=== PATIENT | female | born 1995 | race African-American/Black ===

== ENCOUNTER 2019-02-04 17:38 | Emergency (ER) | payer OTHER ==
[2019-02-04 17:44] VITALS: BP 128/75; PULSE 84; TEMP 98.6; BMI 24.1
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
== END 2019-02-04 21:09 | disposition home or self-care (01) ==
LOC: JERFT 17:38
DX: S09.90XA Unspecified injury of head, initial encounter (principal); S16.1XXA Strain of muscle, fascia and tendon at neck level, initial encounter; T76.11XA Adult physical abuse, suspected, initial encounter; S29.019A Strain of muscle and tendon of unspecified wall of thorax, initial encounter; Y93.89 Activity, other specified; Y92.89 Other specified places as the place of occurrence of the external cause
CPT/HCPCS: 70450-TC; 72125-TC; 84703; 99281-25

== ENCOUNTER 2019-02-13 22:43 | Emergency (ER) | payer OTHER ==
[2019-02-13 22:58] VITALS: TEMP 98.4; BMI 24.1
[2019-02-13] MEDS ORDERED: METOCLOPRAMIDE HCL INJECTION 10 MG/2 ML VIAL IVPUSH ONE (23:32)
[2019-02-13] MEDS ORDERED: ACETAMINOPHEN 500 MG TABLET (FP) PO ONE (23:32)
[2019-02-13] MEDS ORDERED: SODIUM CHLORIDE 0.9% 500 ML INFUS.BAG IV ONE (23:32)
[2019-02-13] MEDS ORDERED: IBUPROFEN 400 MG TABLET (FP) PO ONE ×2 (23:32→23:42)
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
[2019-02-13] MEDS ORDERED: ACETAMINOPHEN 500 MG TABLET (FP) ONE (23:41)
[2019-02-13] MEDS ORDERED: METOCLOPRAMIDE HCL INJECTION 10 MG/2 ML VIAL ONE (23:58)
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
[2019-02-14 01:13] VITALS: BP 117/75; PULSE 90
== END 2019-02-14 02:01 | disposition home or self-care (01) ==
LOC: JER 22:43
PROC: 3E033GC Introduction of Other Therapeutic Substance into Peripheral Vein, Percutaneous Approach (ICD-10-PCS; principal; 2019-02-13)
DX: G44.309 Post-traumatic headache, unspecified, not intractable (principal)
CPT/HCPCS: 99282-25

== ENCOUNTER 2019-05-22 21:12 | Emergency (ER) | payer BC, OTHER ==
[2019-05-22 21:16] VITALS: BP 116/73; PULSE 75; TEMP 98.7; BMI 25.9
[2019-05-22] MEDS ORDERED: KETOROLAC TROMETHAMINE 60 MG/2 ML VIAL IM ONE (22:11)
[2019-05-22] MEDS ORDERED: KETOROLAC TROMETHAMINE 60 MG/2 ML VIAL ONE (22:12)
--- NOTE | 2019-05-22 22:16 | PDOC ---
History of Present Illness - General Chief Complaint: Back Pain Stated Complaint: BACK PAIN Time Seen by Provider: 05/22/19 22:09 - History of Present Illness Initial Comments: 05/22/19 22:11 23 y/o F w/o CM denies possibility of presents for evaluation of mid back pain after lifting a heavy pt at work today. She has a preexisting back injury for which she takes neurontin. No radicular symptoms, loss of bowel or bladder function or saddle parasthesia Past History - Past Medical History Allergies/Adverse Reactions: Allergies Allergy/AdvReac Type Severity Reaction Status Date / Time No Known Allergies Allergy Verified 02/13/19 23:18 Home Medications: Ambulatory Orders Cyclobenzaprine HCl [Flexeril 10 mg] 10 mg PO HS PRN #10 tablet 05/22/19 Gabapentin 0 mg PO HS 05/22/19 Ibuprofen [Motrin -] 600 mg PO TID #30 tablet 05/22/19 COPD: No - Immunization History Immunization Up to Date: Yes - Suicide/Smoking/Psychosocial Hx Smoking History: Never smoked Have you smoked in the past 12 months: No Hx Alcohol Use: No Drug/Substance Use Hx: No Substance Use Type: None Review of Systems - Review of Systems Musculoskeletal: Yes: Back Pain *Physical Exam - Vital Signs Last Vital Signs Temp Pulse Resp BP Pulse Ox 98.7 F 75 19 116/73 97 05/22/19 21:14 05/22/19 21:14 05/22/19 21:14 05/22/19 21:14 05/22/19 21:14 - Physical Exam Comments: 05/22/19 22:13 Thorasic and Lumbar spine skin color and temperature are normal. There is mild B para thorasic muscular spasm and tenderness there is 5/5 strength in B UE and LE w/o gross sensory or motor deficits NVID Medical Decision Making - Medical Decision Making 05/22/19 22:14 Torodol in the ED, Motrin and Flexeril at home f/u with neurosurgery *DC/Admit/Observation/Transfer Diagnosis at time of Disposition: Strain of fascia at thorax level - Discharge Dispostion Disposition: HOME Condition at time of disposition: Stable Decision to Admit order: No - Referrals Referrals: Myron Nunez MD, FAANS [Staff Physician] - - Patient Instructions Printed Discharge Instructions: DI for Thoracic Back Pain, Thoracic Back Pain Additional Instructions: Please start the Motrin tomorrow and take the medication as directed. The muscle relaxor is 1 tablet priopr to sleeping, it will make you tired. Return to the emergency room should symptoms worsen or go unresolved. and follow up with neurosurgery in 1-2 days without fail for further evaluation and treatment options. - Post Discharge Activity
== END 2019-05-22 22:38 | disposition home or self-care (01) ==
LOC: JERFT 21:12
PROC: 3E0233Z Introduction of Anti-inflammatory into Muscle, Percutaneous Approach (ICD-10-PCS; principal; 2019-05-22)
DX: S29.012A Strain of muscle and tendon of back wall of thorax, initial encounter (principal); X58.XXXA Exposure to other specified factors, initial encounter; Y93.89 Activity, other specified; Y92.239 Unspecified place in hospital as the place of occurrence of the external cause; Y99.0 Civilian activity done for income or pay
CPT/HCPCS: 99281-25

== ENCOUNTER 2020-06-28 13:12 | Emergency (ER) | payer BC, OTHER ==
[2020-06-28 13:39] VITALS: BP 111/65; PULSE 70; TEMP 98.2; BMI 28.3
[2020-06-28] MEDS ORDERED: KETOROLAC TROMETHAMINE 60 MG/2 ML VIAL IM ONE (14:37)
[2020-06-28] MEDS ORDERED: KETOROLAC TROMETHAMINE 60 MG/2 ML VIAL ONE (14:39)
--- NOTE | 2020-06-28 14:40 | PDOC ---
History of Present Illness - General Chief Complaint: Chronic pain Stated Complaint: LOWER BACK PAIN Time Seen by Provider: 06/28/20 13:50 - History of Present Illness Initial Comments: 06/28/20 14:38 24-year-old female no comorbidities history of microdiscectomy presents for evaluation of low back pain with posterior lateral right leg radicular symptoms. No systemic symptoms loss of bowel or bladder function or saddle paresthesias. Mild relief with Flexeril at home. Past History - Medical History Allergies/Adverse Reactions: Allergies Allergy/AdvReac Type Severity Reaction Status Date / Time No Known Allergies Allergy Verified 06/28/20 13:36 Home Medications: Ambulatory Orders Cyclobenzaprine HCl [Flexeril 10 mg] 10 mg PO HS PRN #10 tablet 05/22/19 Gabapentin 0 mg PO HS 05/22/19 Ibuprofen [Motrin -] 600 mg PO TID #30 tablet 05/22/19 Methylprednisolone [Medrol Dose Ernesto] 4 mg PO ASDIR #21 tablet 06/28/20 COPD: No - Reproductive History Is Patient Now?: No - Immunization History Immunization Up to Date: Yes - Psycho-Social/Smoking History Smoking History: Never smoked Have you smoked in the past 12 months: No Review of Systems - Review of Systems Constitutional: No: Fever Musculoskeletal: Yes: Back Pain *Physical Exam - Vital Signs Last Vital Signs Temp Pulse Resp BP Pulse Ox 98.2 F 70 18 111/65 100 06/28/20 13:36 06/28/20 13:36 06/28/20 13:36 06/28/20 13:36 06/28/20 13:36 - Physical Exam 06/28/20 14:39 Lumbar spine skin color temperature normal range of motion is slightly decreased. No midline tenderness. Moderate bilateral paralumbar musculature spasm and tenderness 5 out of 5 strength bilateral lower extremities without gross sensorimotor deficits thighs and calves are soft and nontender neurovasc ular intact Medical Decision Making - Medical Decision Making 06/28/20 14:39 Toradol in the emergency room start Medrol Dosepak tomorrow continue at home Flexeril follow-up with spine surgery I have reviewed the pathophysiology with the patient. They are in agreement with the treatment plan all questions were answered to their satisfaction. Understanding for follow-up without fail was also conveyed to the patient. Again they are in agreement. Discharge - Discharge Information Problems reviewed: Yes Clinical Impression/Diagnosis: Lumbar strain, Lumbar radiculopathy Condition: Stable Disposition: HOME - Admission No - Additional Discharge Information Prescriptions: Methylprednisolone [Medrol Dose Ernesto] 4 mg PO ASDIR #21 tablet - Follow up/Referral Referrals: Naga Delaney MD [Primary Care Provider] - Myron Nunez MD, FAANS [Staff Physician] - - Patient Discharge Instructions Additional Instructions: Please start the Medrol Dosepak tomorrow. Return to the emergency room for worsening symptoms. No anti-inflammatories while on the Medrol Dosepak. You may continue Flexeril. Without fail follow-up with neurosurgery in 1 to 2 days for further evaluation and treatment options and return to the emergency room should you have further issues. - Post Discharge Activity Work/Back to School Note: Back to Work
--- OUTSIDE RECORDS SUMMARY | 2020-06-28 15:48 | XMS ---
:1995 Author Organization [facility] Care Team Providers Name Role Phone NURSING, URBANHORIZONS Unavailable Unavailable Marilynn Isaac Unavailable Re-disclosure Warning The records that you are about to access may contain information from federally- assisted alcohol or drug abuse programs. If such information is present, then the following federally mandated warning applies: This information has been disclosed to you from records protected by federal confidentiality rules (42 CFR part 2). The federal rules prohibit you from making any further disclosure of this information unless further disclosure is expressly permitted by the written consent of the person to whom it pertains or as otherwise permitted by 42 CFR part 2. A general authorization for the release of medical or other information is NOT sufficient for this purpose. The Federal rules restrict any use of the information to criminally investigate or prosecute any alcohol or drug abuse patient.The records that you are about to access may contain highly sensitive health information, the redisclosure of which is protected by Article 27-F of the [place] State Public Health law. If you continue you may haveaccess to information: Regarding HIV / AIDS; Provided by facilities licensed or operated by the [facility] Office of Mental Health; or Provided by the [facility] Office for People With Developmental Disabilities. If such information is present, then the following [facility] mandated warning applies: This information has been disclosed to you from confidential records which are protected by state law. State law prohibits you from making any further disclosure of this information without the specific written consent of the person to whom it pertains, or as otherwise permitted by law. Any unauthorized further disclosure in violation of state law may result in a fine or senior care sentence or both. A general authorization for the release of medical or other information is NOT sufficient authorization for further disclosure. Encounters Encounter Providers Location Date Indications Data Source(s ) Outpatient Attender: 06/28/2020 [facility] 10:34:33 AM [facility] EDT - 06/28/2020 10:37:57 AM EDT Patient admitted. Outpatient 06/23/2019 01:27:02 PM EDT - [facility] 06/23/2019 01:31:36 PM EDT Patient admitted. Outpatient 04/15/2019 07:00:06 PM [facility] EDT - 04/15/2019 [facility] ealt 07:12:00 PM EDT Outpatient 04/13/2019 10:28:37 AM [facility] EDT - 04/13/2019 [facility] 11:06:57 AM EDT Outpatient 04/08/2019 04:38:38 PM [facility] EDT - 04/08/2019 [facility] 05:23:06 PM EDT Outpatient Attender: Marilynn [facility] 05:50:20 PM EDT Immunizations Vaccine Date Status Description Data Source(s) Influenza, 06/23/2019 completed Influenza, 06/23/2019 The injectable, 12:00:00 AM Injectable,(cciiv4), [place] MDCK, EDT Quadrivalent, [facility] preservative Preservative Free [facility] free, quadrivalent Tuberculin Test 04/13/2019 completed Tuberculin Test 04/13/2019, The 12:00:00 AM 04/06/2019 Institu te EDT [facility] Tdap 04/06/2019 completed Tdap 04/06/2019 The 12:00:00 AM Institut e EDT For Family Health Tuberculin Test 04/06/2019 completed Tuberculin Test 04/13/2019, The 12:00:00 AM 04/06/2019 Institu te EDT For [facility] IIV3. This is 10/12/2014 completed Influenza, Seasonal, 10/12/2014, The one of two codes 12:00:00 AM Injectable 11/27/2013, [place] replacing CVX EST 01/01/2013, For Family 15, which is 08/23/2011 Health being retired. Meningococcal 11/27/2013 completed MENVEO - Meningococcal 11/27/2013 The MCV4O 12:00:00 AM (Groups A, C, Y, and [place] EST W-[id number]) Oligosaccharide For Family Diphtheria [id number] He alth Conjugate Vaccine IIV3. This is 11/27/2013 completed Influenza, Seasonal, 10/12/2014, The one of two codes 12:00:00 AM Injectable 11/27/2013, [place] replacing CVX EST 01/01/2013, For Family 15, which is 08/23/2011 Health being retired. IIV3. This is 01/01/2013 completed Influenza, Seasonal, 10/12/2014, The one of two codes 12:00:00 AM Injectable 11/27/2013, [place] replacing CVX EDT 01/01/2013, For Family 15, which is 08/23/2011 Health being retired. IIV3. This is 08/23/2011 completed Influenza, Seasonal, 10/12/2014, The one of two codes 12:00:00 AM Injectable 11/27/2013, [place] replacing CVX EST 01/01/2013, For Family 15, which is 08/23/2011 Health being retired. varicella 10/22/2009 completed Varicella 10/22/2009, The 12:00:00 AM 11/17/1997 Institu te EST For [facility] This code is 08/26/2006 completed Fluvax 08/26/2006, The being retired. 12:00:00 AM 10/01/2002 In stitute It will still be EST For Family found in older [facility] immunization records. It included both preservative free and non-preservative free. Hep A, ped/adol, 08/26/2006 completed Hepatitis A Vaccine 08/26/2006 The 2 dose 12:00:00 AM Ped/adol 2 Dose [place] EST For [facility] This code is 10/01/2002 completed Fluvax 08/26/2006, The being retired. 12:00:00 AM 10/01/2002 In [facility] It will still be EST For Family found in older [facility] immunization records. It included both preservative free and non-preservative free. MMR 11/14/2000 completed MMR 11/14/2000, The 12:00:00 AM 11/17/1997 Institu te EST For [facility] IPV 11/14/2000 completed IPV 11/14/2000 The 12:00:00 AM Institut e EST [facility] DTaP 11/14/2000 completed DTaP- Diphtheria 11/14/2000 T he 12:00:00 AM tetanus toxoids and [place] EST acellular pertussis For [facility] Hib, unspecified 03/09/1998 completed Hib, Unspecified 03/09/1998, The formulation 12:00:00 AM Formulation 04/20/1997, In [facility] EDT 02/18/1997, For Fami ly 1996 Health DTP 03/09/1998 completed DTP-Diphtheria,tetanus 03/09/1998, The 12:00:00 AM toxoids and pertussis 04/20/1997, [place] EDT vaccine 02/18/1997, For Fami ly 1995 Health varicella 11/17/1997 completed Varicella 10/22/2009, The 12:00[facility] MMR 11/17/1997 completed MMR 11/14/2000, The 12:00:00 [facility] This CVX code 04/20/1997 completed Polio, Unspecified 04/20/1997, The allows reporting 12:00:00 AM Formulation 02/18/1997, [place] of a vaccination EDT 1995 Fo r Family when formulation Hea lth is unknown (for example, when recording a polio vaccination when noted on a vaccination card) Hib, unspecified 04/20/1997 completed Hib, Unspecified 03/09/1998, The formulation 12:00:00 AM Formulation 04/20/1997, In [facility] EDT 02/18/1997, For Fami ly 1996 Health This code 04/20/1997 completed Hepatitis B 04/20/1997, The applies to any 12:00:00 AM Vaccine,pediatric/adol 02/18/1997 , [place] standard EDT escent Dosage 1995 For F amily pediatric Health formulation of Hepatitis B vaccine. It should not be used for the 2-dose hepatitis B schedule for adolescents (11-15 year olds). It requires Merck's Recombivax HB adult formulation. Use code 43 for that vaccine. DTP 04/20/1997 completed DTP-Diphtheria,tetanus 03/09/1998, The 12:00:00 AM toxoids and pertussis 04/20/1997, [place] EDT vaccine 02/18/1997, For Fami ly 1995 Health This CVX code 02/18/1997 completed Polio, Unspecified 04/20/1997, The allows reporting 12:00:00 AM Formulation 02/18/1997, [place] of a vaccination EDT 1995 Fo r Family when formulation Hea lth is unknown (for example, when recording a polio vaccination when noted on a vaccination card) Hib, unspecified 02/18/1997 completed Hib, Unspecified 03/09/1998, The formulation 12:00:00 AM Formulation 04/20/1997, [place] EDT 02/18/1997, For Fami ly 1996 Health This code 02/18/1997 completed Hepatitis B 04/20/1997, The applies to any 12:00:00 AM Vaccine,pediatric/adol 02/18/1997 , [place] standard EDT escent Dosage 1996 For F amily pediatric Health formulation of Hepatitis B vaccine. It should not be used for the 2-dose hepatitis B schedule for adolescents (11-15 year olds). It requires Merck's Recombivax HB adult formulation. Use code 43 for that vaccine. DTP 02/18/1997 completed DTP-Diphtheria,tetanus 03/09/1998, The 12:00:00 AM toxoids and pertussis 04/20/1997, [place] EDT vaccine 02/18/1997, For Fami ly 1996 Health This CVX code 1996 completed Polio, Unspecified 04/20/1997, The allows reporting 12:00:00 AM Formulation 02/18/1997, [place] of a vaccination EST 1996 Fo r Family when formulation Hea lth is unknown (for example, when recording a polio vaccination when noted on a vaccination card) Hib, unspecified 1996 completed Hib, Unspecified 03/09/1998, The formulation 12:00:00 AM Formulation 04/20/1997, In stitute EST 02/18/1997, For Fami ly 1996 Health This code 1996 completed Hepatitis B 04/20/1997, The applies to any 12:00:00 AM Vaccine,pediatric/adol 02/18/1997 , [place] standard EST escent Dosage 1996 For F amily pediatric Health formulation of Hepatitis B vaccine. It should not be used for the 2-dose hepatitis B schedule for adolescents (11-15 year olds). It requires Merck's Recombivax HB adult formulation. Use code 43 for that vaccine. DTP 1996 completed DTP-Diphtheria,tetanus 03/09/1998, The 12:00:00 AM toxoids and pertussis 04/20/1997, [place] EST vaccine 02/18/1997, For Fami ly 1996 Health Insurance Providers Payer name Policy type Policy ID Covered Covered green party's Policy P tyra / Coverage green party ID relationship to [facility] Inf ormation type gonzales GHI CBP OUTPT [id number] [facility] [id number] [facility] [id number] [place] [id number] [facility] HUMAN [id number] Self [phone] RESOURCES INSURANCE HUMAN Employee [id number] RESOURCES Health Care INSURANCE [facility] [id number] [facility] [id number] Problems, Conditions, and Diagnoses Code Display Name Description Problem Type Effective Data Dates Source(s) Z23 Encounter for Encounter for Diagnosis 06/28/2020 [facility] itute immunization immunization 10:34:33 AM For Famil y EDT Health Z00.00 Encounter for Encounter for Diagnosis 06/23/2019 [facility] [employer] general adult general adult 01:27:02 PM For Fam valente medical examination medical examination EDT Health without abnormal without abnormal findings findings Z02.9 Encounter for Encounter for Diagnosis 04/15/2019 [facility] [employer] administrative administrative 07:00:06 PM For F amily examinations, examinations, EDT Health unspecified unspecified Forms Forms Diagnosis 04/15/2019 The [place] 07:00:06 PM For Family EDT Health PPD Reading PPD Reading Diagnosis 04/15/2019 The Institut e 07:00:06 PM For Family EDT Health Z11.1 Encounter for Encounter for Diagnosis 04/13/2019 The [facility] itute screening for screening for 10:28:37 AM For Fam valente respiratory respiratory EDT Health tuberculosis tuberculosis Employee Health Employee Health Diagnosis 04/06/2019 The [place] Assessment Assessment 04:51:56 PM For Family EDT Health Surgeries/Procedures Procedure Description Date Indications Data Source(s) FLUCELVAX, FLUCELVAX, Routine 06/23/2019 Need for 06/23/2019 Nee d for The INFLUENZA, INFLUENZA, 1:27 PM EDT prophylactic 05:27:57 PM prophylactic [place] CCIIV4, CCIIV4, vaccination EDT vaccination For Family PSRV FREE, PSRV FREE, and and He alth 4YRS+, 0.5 4YRS+, 0.5 inoculation inocul ation ML, ML, against against PREFILLED PREFILLED influenza influenza SYRINGE SYRINGE Need for prophylactic vaccination and in oculation against influenza IMMUNIZ IMMUNIZ 06/23/2019 Encounter for 06/23/2019 [employer] unter for The ADMIN; 1 ADMIN; 1 12:00 AM EDT immunization 04:00:00 AM immunization [place] VACCINE VACCINE EDT For Fami ly (1/COMBO (1/COMBO Health VACC/* VACC/* Encounter for immunization PPD-TB PPD-TB Routine 04/13/2019 Screening 04/13/2019 Screenin g The INTRADERMAL INTRADERMAL 11:02 AM examination 03:02:52 PM examination [place] TEST TEST EDT for pulmonary EDT for pulmon rody For Family tuberculosis tuberculosi s Health Screening examination for pulmonary tube rculosis PPD-TB PPD-TB Routine 04/06/2019 Screening 04/06/2019 Screenin g The INTRADERMAL INTRADERMAL 5:46 PM EDT examination 09:46:50 PM examination [place] TEST TEST for pulmonary EDT for pulmon rody For Family tuberculosis tuberculosi s Health Screening examination for pulmonary tube rculosis TDAP TDAP Routine 04/06/2019 Need for prophylactic 07/01/2 019 Need for prophylactic The VACCINE VACCINE 5:46 PM EDT vaccination with combined 09 :46:50 PM vaccination with combined [place] 7/> YR SQ IMM kgtdpdwpjm-vlmkpbq-guxytvihl EDT tmmfgpkepg-sgqxjxi-sjkacvyug For Family IM CLINIC (DTP) vaccine (DTP) vacc ine Health Need for prophylactic vaccination with c ombined opaqksmywy-tbotzjw-fhssnukdu (DTP) vaccine FLUCELVAX, INFLUENZA, FLUCELVAX, INFLUENZA, The [facility] CCIIV4, PSRV FREE, 4YRS+, CCIIV4, PSRV FREE, 4YRS+, Health 0.5 ML, PREFILLED SYRINGE 0.5 ML, PREFILLED SYRINGE IMMUNIZ ADMIN; 1 VACCINE IMMUNIZ ADMIN; 1 VACCINE The [facility] (1/COMBO VACC/* (1/COMBO VACC/* Health Results ID Date Data Source [id number] 02/26/2020 12:00:00 AM EDT [facility] Name Value Range Interpretation Code Description Data Jessica rce(s) Supporting Document(s ) 2019[facility] XXX BETH+probe- Imp This lab was ordered by [facility] and reported by [facility]. ID Date Data Source [id number] 04/15/2019 07:03:00 PM EDT [facility] Name Value Range Interpretation Description Data Sup porting Code Source(s) Document(s ) TUBERCULIN, 0x0 mm The [place] INTRADERMAL For [facility] (PPD) Health ID Date Data Source [id number] 04/08/2019 05:20:00 PM EDT [facility] Name Value Range Interpretation Description Data Sup porting Code Source(s) Document(s ) TUBERCULIN, 0mm x 0mm The INTRADERMAL [place] (PPD) [facility] Health Negative ID Date Data Source [id number] 04/06/2019 05:50:23 PM EDT [facility] Reason for Visit and Comments: Employ ee Health Assessment [40] - 23 year old female who is a new hireefor the [place]. 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.Vitals 04/06/19 1718BP: 100/60Pu lse: 79Temp: 99.2 F (37.3 C)TempSrc: OralSpO2: 100%Weight: 146 lb (66.2 kg)Height: 5 1 .5" (1.562 m)PainSc: 0-NoneTdap, vaccine/s administered as per provider Marlin henriquez. See vaccineimm/inj section.Administered PPD to right forearm. Patient tolerated well w ith no adverseeffects noted. Patient will return to have test result read in 48 - 72 hours.P atient Communication and Education AssessmentLearner: PatientLearning Needs reviewed: Immuniza tions:?PPD YesBarriers: NoneTeaching Methods: Lecture/ 1:1 DiscussionVerbalized Unders tanding: Communicates/understandsFollow up plan: 04/08/19 for PPD readingSignature: Jesus Alberto Valente RNTitle: Marilynn Campbell MD 04/06/2019 5:50 PM SignedSalvatore Mcbride is a 23 yea r old female asymptomatic for completion of PPD x 2for work purposes. Feels wellHas all vaccine s completed.Ros-negativeBP 100/60 (Orthostatic Site : Arm - Right, Orthostatic Position : Sitt ing,Orthostatic Cuff Size : Adult) | Pulse 79 | Temp 99.2 F (37.3 C) (Oral) |Ht 5 1.5" (1 .562 m) | Wt 146 lb (66.2 kg) | LMP 04/01/2017 Comment: onmenses now | SpO2 100% | BMI 27.14 kg/mPatient is alert and oriented times three.Passed color testFit testing OK(Z2 3) Need for prophylactic vaccination with fabsilvbkoesfbrrct-kxwnffl-kqgaclxku (DT P) vaccine (primary encounter diagnosis)Comment:Plan: TDAP VACCINE 7 YRS/> IM, TDAP VACCINE 7 YRS/> IM(Z11.1) Screening examination for pulmonary tuberculosisComment:Plan: PPD- TB INTRADERMAL TEST, PPD-TB INTRADERMAL TESTfup 2 days or as neededPrimary Diagnosis:Z00.0 0 Routine physical examination Other Diagnoses:Z23 Need for prophylactic vaccination with combined wvwfaprxvp-ulutolz-vopvyemso (DTP) vacci ne Z11.1 Screening examination for pulmonary tuberculosis Z00.00 Encounter for general adult medical examinationwithout abnormal findings (Ac tive) Comment:Billing Diagnosis Z11.1 Enc ounter for screening for respiratorytuberculosis (Active) Comm ent:Billing Diagnosis Z23 Encounter for immunization (Active) Comment:Billing DiagnosisAllergies As of Date: 9(No Known Allergies)Date Reviewed: 04/06/2019Reviewed by: Ruth Turner RN - ReviewedLevel of Service:[id number] OFFIC/OUTPT VISIT E&M EST LOW-MOD SEVER* (QU,AQ) Historical Information No family history on fileSocial History Ma rital Status: Single Spouse: Years of Education: # children: Social History Narrative (none)Social History Topics Tobacco Use: Never Alcohol Use: Not Ask ed Drug Use: Not Asked Sexually Active: Not AskedImmunizations Administered Tdap 04/06/2019 Tuberculin Test 04/06/2019 Name Value Range Interpretation Code Description Data Jessica rce(s) Supporting Document(s ) Procedure Social History Code Duration Value Status Description Data Source(s ) Smoking 04/06/2019 12:00:00 Never smoker completed Never smoker T [facility] EDT Family [facility] Vital Signs ID Date Data Source UNK Name Value Range Interpretation Code Description Data Source(s) Oxygen saturation 100 % 100 % The Ins titute in Arterial blood For Fam valente by Pulse oximetry Health Body mass index 27.14 kg/m2 27.14 kg/m2 The Ins titute (BMI) [Ratio] For [facility] Body weight 66.225 kg 66.225 kg The [place] Measured For [facility] Body height 156.2 cm 156.2 cm The [facility] Body temperature 37.33 Estrella 37.33 Estrella The [facility] itute For [facility] Heart rate 79 /min 79 /min [facility] Diastolic blood 60 mm[Hg] 60 mm[Hg] The Insti tute pressure For [facility] Systolic blood 100 mm[Hg] 100 mm[Hg] The Instit [place] pressure For [facility]
== END 2020-06-28 14:43 | disposition home or self-care (01) ==
LOC: JERFT 13:12
PROC: 3E0233Z Introduction of Anti-inflammatory into Muscle, Percutaneous Approach (ICD-10-PCS; principal; 2020-06-28)
DX: M54.17 Radiculopathy, lumbosacral region (principal); S39.012A Strain of muscle, fascia and tendon of lower back, initial encounter
CPT/HCPCS: 99284-25

== ENCOUNTER 2021-05-08 20:08 | Emergency (ER) | payer OTHER ==
[2021-05-08 20:17] VITALS: BP 98/58; PULSE 82; TEMP 98.5; BMI 22.6
== END 2021-05-08 22:35 | disposition home or self-care (01) ==
LOC: JER 20:08
DX: M54.16 Radiculopathy, lumbar region (principal); S16.1XXA Strain of muscle, fascia and tendon at neck level, initial encounter; V49.40XA Driver injured in collision with unspecified motor vehicles in traffic accident, initial encounter
CPT/HCPCS: 72050-TC-FY; 72100-TC-FY; 99284-25

== ENCOUNTER 2021-12-15 11:28 | Emergency (ER) | payer OTHER ==
[2021-12-15 11:38] VITALS: BP 133/92; PULSE 78; TEMP 98.2; BMI 28.3
[2021-12-15] MEDS ORDERED: ONDANSETRON 4 MG TABLET PO ONE ×2 (12:17→12:27)
== END 2021-12-15 13:25 | disposition home or self-care (01) ==
LOC: JER 11:28
DX: R11.2 Nausea with vomiting, unspecified (principal)
CPT/HCPCS: 84703; 99283-25

== ENCOUNTER 2023-02-01 15:52 | Emergency (ER) | payer BC, OTHER ==
[2023-02-01 16:07] VITALS: BP 140/95; PULSE 79; RESP 18; TEMP 97.9; BMI 24.5
[2023-02-01] MEDS ORDERED: ACETAMINOPHEN 325 MG TABLET (FP) PO ONE (16:43)
[2023-02-01] MEDS ORDERED: SODIUM CHLORIDE 0.9% 500 ML INFUS.BAG IV ONE (16:43)
[2023-02-01] MEDS ORDERED: ACETAMINOPHEN 325 MG TABLET (FP) ONE (16:58)
[2023-02-01 18:22] LABS: BASO % 1.1 % (0-2.0); EOS % 1.7 % (0-4.5); HEMOGLOBIN 11.8 GM/dL (10.7-15.3); LYMPH % 44.2 % (8-40); MCH 32.3 pg (25.7-33.7); MCHC 33.7 g/dl (32.0-36.0); MEAN PLT VOLUME 8.7 fl (7.5-11.1); PLATELET COUNT 231 10^3/uL (134-434); RBC 3.65 M/mm3 (3.60-5.2); RDW 13.2 % (11.6-15.6); WHITE BLOOD COUNT 7.5 K/mm3 (4.0-10.0)
[2023-02-01 18:40] LABS: ALBUMIN 3.8 g/dl (3.4-5.0); BLOOD UREA NITROGEN 11.4 mg/dL (7-18)
[2023-02-01 18:41] LABS: MAGNESIUM 2.1 mg/dL (1.8-2.4)
[2023-02-01 18:43] LABS: CREATININE 0.6 mg/dL (0.55-1.3)
[2023-02-01 18:45] LABS: BILIRUBIN,TOTAL 0.2 mg/dL (0.2-1); TOT PROT 7.4 g/dl (6.4-8.2)
[2023-02-01 19:14] LABS: PROTHROMBIN TIME (PATIENT) 11.6 SEC (9.7-13.0)
[2023-02-01 19:18] LABS: ACTIVATED PTT 27.9 SECONDS (25.2-36.5)
== END 2023-02-01 20:14 | disposition home or self-care (01) ==
LOC: JER 15:52
DX: R07.9 Chest pain, unspecified (principal)
CPT/HCPCS: 36415; 71046-TC-FY; 80053; 83735; 84484; 84703; 85025; 85379; 85610; 85730; 93005; 93010; 99285-25